=== PATIENT | female | born 1995 | race Caucasian/White ===

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

== ENCOUNTER 2021-11-25 17:49 | Emergency (ER) | payer OTHER ==
[~2021-11-25 17:49] MED LIST: AUGMENTIN 875-1 EACH PO; DELSYM30 MG/5 ML PO; PREDNISONE 50 M50 MG PO
[2021-11-25] MEDS ORDERED: CEPHALEXIN500 MG PO (21:54)
[2021-11-25] MEDS ORDERED: BACTRIM DS TAB1 EACH PO (21:54)
== END 2021-11-25 22:10 | disposition home or self-care (01) ==
LOC: ER1 17:49
DX: L02.411 Cutaneous abscess of right axilla (principal)
CPT/HCPCS: 10060; 99283